=== PATIENT | male | born 1995 | race Caucasian/White ===

== ENCOUNTER 2023-10-09 12:45 | Outpatient (CLI) | payer MEDICAID, OTHER ==
--- NOTE | 2023-10-19 06:05 | XRAY Report ---
PROCEDURE: Hand 1-2V RT INDICATIONS: SPRAIN OF MCP JOINT OF RIGHT RING FINGER TECHNIQUE: 2 views of the hand(s) acquired. COMPARISON: None. FINDINGS: Bones: No fractures or dislocations. No suspicious bony lesions. Soft tissues: No suspicious soft tissue calcifications or masses. IMPRESSION: No acute bony abnormality. If pain persists with conservative management, consider repeat radiographs in 10-14 days or cross-sectional imaging. Reviewed by: Billy Coreas MD on 10/09/2023 1:53 PM PST Approved by: Billy Coreas MD on 10/09/2023 1:53 PM [facility] Station ID: [id number]
== END 2023-10-09 13:00 | disposition home or self-care (01) ==
LOC: DI.N 12:45
PROVIDERS: ATTEND Physician Assistant
DX: S63.654A Sprain of metacarpophalangeal joint of right ring finger, initial encounter (principal)